=== PATIENT | male | born 2000 | race Caucasian/White ===

== ENCOUNTER → 2018-03-17 | Outpatient (CLI) | payer OTHER | LOC: COL.CARD 09:39 | DX: G40.909 Epilepsy, unspecified, not intractable, without status epilepticus (principal) ==

== ENCOUNTER → 2018-07-03 | Outpatient (CLI) | payer OTHER | LOC: COL.RAD 13:15 | DX: S43.492A Other sprain of left shoulder joint, initial encounter (principal); M21.822 Other specified acquired deformities of left upper arm | CPT/HCPCS: A9585; Q9967 ==